=== PATIENT | female | born 1955 | race Caucasian/White ===

== ENCOUNTER 2016-12-25 19:30 | Emergency (ER) | payer MEDICAID ==
[~2016-12-25] VITALS: Ht 162.6 cm; Wt 93.0 kg
[2016-12-25 19:34] VITALS: BP 156/83
[2016-12-25] MEDS ORDERED: PROMETHAZINE HCL 25 MG/ML 1ML IM ONE (21:15)
[2016-12-25] MEDS ORDERED: HYDROmorphone HCL 2 MG/ML VL IM ONE (21:15)
== END 2016-12-25 22:01 | disposition home or self-care (01) ==
LOC: ER 19:45
DX: G43.909 Migraine, unspecified, not intractable, without status migrainosus (principal); J45.909 Unspecified asthma, uncomplicated
CPT/HCPCS: 96372; 99284; J1170; J2550

== ENCOUNTER 2017-03-07 08:33 | Emergency (ER) | payer MEDICAID ==
[~2017-03-07] VITALS: Ht 162.6 cm; Wt 93.0 kg
[2017-03-07 09:01] VITALS: BP 138/78
[2017-03-07] MEDS ORDERED: MEPERIDINE HCL (50 MG/ML) 1 ML VIAL IM ONE (09:15)
[2017-03-07] MEDS ORDERED: PROMETHAZINE HCL 25 MG/ML 1ML IM ONE (09:15)
== END 2017-03-07 10:10 | disposition home or self-care (01) ==
LOC: ER 08:37
DX: G43.909 Migraine, unspecified, not intractable, without status migrainosus (principal); J45.909 Unspecified asthma, uncomplicated; Z87.442 Personal history of urinary calculi
CPT/HCPCS: 96372; 99284; J2175; J2550

== ENCOUNTER 2017-05-03 17:07 | Emergency (ER) | payer MEDICAID ==
[~2017-05-03] VITALS: Ht 160 cm; Wt 88.5 kg
[2017-05-03 17:12] VITALS: BP 139/100
[2017-05-03] MEDS: ONDANSETRON HCL 4 MG/2 ML VIAL IM ONE (19:10)
[2017-05-03] MEDS: HYDROcodone-ACET 10/325MG TAB PO ONE (19:10)
== END 2017-05-04 03:46 | disposition left against medical advice (07) ==
LOC: ER 17:12
DX: G43.909 Migraine, unspecified, not intractable, without status migrainosus (principal); J45.909 Unspecified asthma, uncomplicated; Z90.89 Acquired absence of other organs; Z90.710 Acquired absence of both cervix and uterus; Z53.29 Procedure and treatment not carried out because of patient's decision for other reasons
CPT/HCPCS: 99283; J2405